=== PATIENT | male | born 1990 | race Caucasian/White ===

== ENCOUNTER 2020-03-06 20:22 | Emergency (ER) | payer SELFPAY ==
[2020-03-06] VITALS (8 sets, daily range): BP systolic 169; BP diastolic 81; PULSE 76–87; RESP 18–26; TEMP 36.6–36.7; O2SAT 98–100
--- NOTE | 2020-03-06 20:15 | DI.CT_ITS ---
EXAM: CT ABDOMEN PELVIS W CLINICAL HISTORY: RLQ pain and right flankpain, r/o appe/stone. TECHNIQUE: Imaging Protocol: Axial computed tomography images with coronal and sagittal reformatted images were created and reviewed CONTRAST MATERIAL: Intravenous: Omnipaque 350 Contrast volume:97 ml Oral: no COMPARISON: No exams were available for comparison FINDINGS: ABDOMEN: Lung Bases: Normal where visualized. Liver: Normal density. No measurable mass. Gallbladder and biliary tract: No radiodense calculus or dilation. Pancreas: Normal density, no abnormal calcifications or inflammatory process. Spleen: Normal. Kidneys: Normal size, contour and axis. Is there is mild right hydronephrosis secondary to a 3 millim eter stone at the right ureterovesical junction. No additional urinary tract calculi are seen.. No masses seen. Adrenal glands: No masses seen. Abdominal Aorta: Abdominal portion non-dilated. PELVIS: Bladder: Symmetric distention, no gross wall thickening. Bowel: No obstruction or bowel wall thickening. Peritoneal cavity: No ascites, collection or mesenteric inflammatory response. Bones: Within normal limits. Reproductive organs: Within normal limits. Lymph nodes: Unremarkable. Impression: Unremarkable CT scan of the abdomen and pelvis. DATA REPOSITORY: All CT scans at this facility are submitted to the National Radiology Data Registry (NRDR) Dose Index Registry (DIR) with the [employer] (ACR). RADIATION OPTIMIZATION: All CT scans at this facility use at least one of these dose optimization te chniques: automated exposure control; mA and/or kV adjustment per patient size (includes targeted exa ms where dose is matched to clinical indication); or iterative reconstruction.
--- NOTE | 2020-03-06 20:27 | DI.CT_ITS ---
EXAM: CT LUMBAR SPINE RECONS CLINICAL HISTORY: right flank and back pain. TECHNIQUE: Imaging Protocol: Axial computed tomography images with coronal and sagittal reformatted images were created and reviewed CONTRAST MATERIAL: Intravenous: Omnipaque 350 Contrast volume:structured data in ml Oral: yes / no COMPARISON: No exams were available for comparison FINDINGS: Bones: The last intervertebral disc space is designated the L5/S1 level for the numbering purpose of this examination. The vertebral body heights are well maintained. Alignment is satisfactory. No frac ture is seen. T12-L1: No disc herniations or bulges are present. L1-2: No disc herniations or bulges are present. L2-3: No disc herniations or bulges are present. L3-4: No disc herniations or bulges are present. L4-5: No disc herniations or bulges are present. L5-S1: No disc herniations or bulges are present. The visualized SI joints and sacrum are will maintained Soft Tissues: The paraspinal soft tissues are unremarkable. The kidneys are partially visualized. A small stone is noted in the right ureterovesical junction. Please see separate abdomen pelvic CT rep ort. IMPRESSION: Normal CT examination of the lumbar spine. RADIATION DOSE DELIVERED: DATA REPOSITORY: All CT scans at this facility are submitted to the National Radiology Data Registry (NRDR) Dose Index Registry (DIR) with the [employer] (ACR). RADIATION OPTIMIZATION: All CT scans at this facility use at least one of these dose optimization te chniques: automated exposure control; mA and/or kV adjustment per patient size (includes targeted exa ms where dose is matched to clinical indication); or iterative reconstruction.
--- NOTE | 2020-03-06 20:31 | W.ED.GENAD ---
Discharge Plan Disposition Patient Disposition: HOME Condition: Good Discharge Details Chief Complaint: [employer] Clinical Impression: Kidney stone on right side Primary Care Provider: None,None ED Provider: Otto Caicedo Home Meds and New Rx's Prescriptions: New tamsulosin [Flomax] 0.4 mg capsule 0.4 mg PO DAILY Qty: 7 RF: 0 No Action ibuprofen 800 MG tablet 800 mg PO TID PRNQty: 30 RF: 0 acetaminophen [Mapap Extra Strength] 500 MG tablet 1,000 mg PO PRN PRN (Reason: Pain) RF: 0 Discharge Instructions Instructions: Kidney Stones (ED) Additional Instructions: This time you have a kidney stone, it is right at the end of your ureter, and should pass soon. Please take the Flomax daily until your symptoms resolve. Please take 1000 mg of Tylenol and 800 mg of ibuprofen every 6 hours for pain. Please take the Pinetta's only as needed for breakthrough pain, but if you do take them only take 500 mg of the Tylenol/acetaminophen. You can still take ibuprofen with the Pinetta's. Please take the Zofran as needed for the nausea. We will put in a referral for you with a primary care provider. Please drink plenty of fluids, I would recommend drinking 10 to 12 cups of water per day to prevent kidney stones in the future. If you notice any worsening of your symptoms, or any new symptoms such as vomiting, diarrhea, fever, chills, shortness of breath, chest pain, numbness, weakness, or fainting , please return immediately to the emergency department for reevaluation. Please follow up with your primary care provider as soon as possible for reassessment and reevaluation. As always, it was a pleasure participating in your medical care today. Discharge Data Discharge Date/Time-TO BE ENTERED AT DEPARTURE: 03/06/20 23:35 Medical Decision Making 29-year-old male who presents with 1 to 2 hours of sudden onset right lower quadrant abdominal pain with some right back pain. Pain radiates to the groin as well, normal testicular exam, symptoms inconsistent with testicular torsion. No clinical evidence of cauda equina syndrome at this time. Vitals are stable. Exam demonstrates reproducible tenderness in the right lower quadrant, right CVA tenderness. Differential is highest for appendicitis, or kidney stones. We will treat the patient's pain, get a CT scan of the abdomen and L-spine. Gently rehydrate and reassess. 10:[address] scan has returned, there is a small distal right ureteral obstructing calculus, right at the UVJ, mild enteritis. No evidence of acute appendicitis. No other abnormalities. Signs and symptoms appear clinically consistent with urolithiasis. Urinalysis has returned, no evidence of infection, lactate is likely secondary to pain and mild dehydration. Repeat lactate after 1 L of normal saline rehydration has returned completely normal at 1.1. Patient feels much better after medication treatment. No evidence of other significant abnormality on CT scan. Patient's resolution of his symptoms, I do feel that he can be discharged home with close follow-up. He does not have a PCP, we will place a referral with case management for PCP. Will recommend NSAIDs at home, Flomax, and Pinetta to go only as needed. Discussed red flags for which to return. I have extensively reviewed the treatment plan and discharge instructions with the patient. I have addressed all patient concerns at this time. The patient was made aware of what symptoms to monitor for that would warrant a return to the emergency department. Discussed the plan with the patient, they demonstrate verbal understanding and agreement with our assessment and plan at this time. IMPRESSION: 1. No acute abnormality noted in the lumbar spine. 2. Distal right ureteral obstructing calculus. COMMENTS: Preliminary interpretation is based on receipt of 313 image(s). A final report will be issued subsequently. Thank you for allowing us to participate in the care of your patient. Dictated and Authenticated by: Mica Mahajan MD 03/06/2020 9:30 PM Eastern Time ([place] & [place]) FINDINGS: Liver: Normal. No mass. Gallbladder and bile ducts: Gallbladder not well distended. Pancreas: Normal. No ductal dilation. Spleen: Normal. No splenomegaly. Adrenals: Normal. No mass. Kidneys and ureters: There is decreased right renal perfusion with moderate right perinephric edema. There is moderate right hydronephrosis and hydroureter with periureteral edema. There is a right UVJ obstructing calculus best seen series 6 images 716 -719, 3 mm in diameter. Stomach and bowel: There may be some mild wall edema involving proximal small bowel loops versus artifact of incomplete distention related to peristalsis. Appendix: The appendix is not definitely identified. There are no secondary signs to suggest acute appendicitis. Intraperitoneal space: Trace free fluid noted in the deep pelvis. Vasculature: Unremarkable. No abdominal aortic aneurysm. Lymph nodes: Unremarkable. No enlarged lymph nodes. Bladder: Unremarkable as visualized. Reproductive: Unremarkable as visualized. Bones/joints: Unremarkable. No acute fracture. Soft tissues: Unremarkable. IMPRESSION: 1. Right UVJ obstructing calculus. 2. Mild enteritis not excludable but not strongly suspected. Clinical correlation requested. COMMENTS: Preliminary interpretation is based on receipt of 1182 image(s). A final report will be issued subsequently. Thank you for allowing us to participate in the care of your patient. Dictated and Authenticated by: Mica Mahajan MD 03/06/2020 9:36 PM Eastern Time ([place] & [place]) HPI General Date/Time Provider Initiated Documentation: 03/06/20 20:26. HPI Narrative: 29-year-old male with no significant past medical history who presents today for evaluation of abdominal pain and back pain. Patient states that just an hour or 2 ago he felt a pop shortly after getting out of bed to go make dinner for his son. He describes the pain in the back in the right lower abdomen. He thought he had ruptured something. Pain has continued for the last hour or so, he describes it as sharp, and severe. No significant aggravating or relieving factors except for making it worse when he lies down flat. He does admit to nausea and has had 2 episodes of vomiting. He does admit to radiation down to his groin however he denies any testicular pain or tenderness. He denies any dysuria. He denies any previous abdominal surgeries. Patient denies any numbness tingling or weakness. He denies any syncope. He denies any chest pain or shortness of breath. He does have a history of chronic back pain, but states that this feels notably different. Related Data Home Medications Medication Instructions Recorded Confirmed ibuprofen 800 mg PO TID PRN #30 tablet 07/16/14 03/06/20 acetaminophen [Tylenol Extra 1,000 mg PO PRN PRN 04/06/15 03/06/20 Strength] tamsulosin [Flomax] 0.4 mg PO DAILY #7 cap 03/06/20 Previous Rx's Medication Instructions Recorded ibuprofen 800 mg PO TID PRN #30 tablet 07/16/14 tamsulosin [Flomax] 0.4 mg PO DAILY #7 cap 03/06/20 Allergies Allergy/AdvReac Type Severity Reaction Status Date / Time No Known Allergies Allergy Unverified 03/06/20 21:03 Review of Systems All systems reviewed & are unremarkable except as noted in HPI and below PFSH Social History Smoking/Tobacco Use Status: Current every day Drug use: Occasionally Exam Narrative Exam Narrative: 1.Const: Well-nourished, Well-developed, appearing stated age 2.Eyes: PERRL, no conjunctival injection, and symmetrical lids. 3.ENT: Atraumatic external nose and ears. Moist MM. Neck: Symmetric, trachea midline, No thyromegaly. 4.CVS: +S1/S2, No murmurs or gallops. Peripheral pulses 2+ and equal in all extremities. Brisk capillary refill in all extremities. 5.RESP: Unlabored respiratory effort. Clear to auscultation bilaterally. No wheezes rales or rhonchi 6.GI: Soft, nondistended, notable tenderness in the right lower quadrant, no testicular or penile tenderness. Normal cremasteric reflex bilaterally. No hepatosplenomegaly. Mild voluntary guarding of the right lower quadrant. Positive CVA tenderness on the right. Positive heel strike test on the right, pain worsened with obturator sign. 7.MSK: Normocephalic/Atraumatic, Extremities w/o deformity or ttp No cyanosis or clubbing, Normal movement of all extremities 8.Skin: Warm, Dry. No rashes or lesions. 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 Sensation grossly intact, no focal neurologic deficits. Normal sensation in the lower extremities, normal strength in lower extremities, no saddle anesthesia over the groin. 10.Psych: (AAO) x3. Appropriate mood and affect
[2020-03-06] MEDS: Normal Saline 1,000 ML 1000 ML IV (20:52)
[2020-03-06] MEDS: Ondansetron 4 MG/2 ML VIAL IVP (20:54)
[2020-03-06] MEDS: Omnipaque 350 MG/ML 100 ML BTL IJ (20:56)
[2020-03-06] MEDS: Normal Saline - Diluent 50 ML VIAL IV (20:56)
[2020-03-06 21:06] LABS: Abs Immature Grans 0.03 k/cumm (0.0-0.09); Absolute Basophil Count 0.01 k/cumm (0.0-0.2); Absolute Eosinophil Count 0.08 k/cumm (0.0-0.7); Absolute Lymphocyte Count 3.17 k/cumm (1.2-3.4); Absolute Monocyte Count 0.95 k/cumm (0.11-0.7); Absolute Neutrophil Count 9.89 k/cumm (1.2-6.7); Basophils % 0.1; Eosinophils % 0.6; HCT 44.1 % (40.0-50.0); HGB 15.3 g/dL (13.5-17.5); Immature Grans % 0.2 %; Lymphocytes % 22.4; Mean Corp. HGB Concentration 34.7 g/dL (32.0-36.0); Mean Corpuscular Hemoglobin 32.5 pg (27.0-33.0); Mean Corpuscular Volume 93.6 fL (80-95); Mean Platelet Volume 9.3 fL (8.0-11.0); Monocytes % 6.7; Platelet Count 234 x1000/uL (130-400); RBC 4.71 m/cumm (4.50-6.00); RBC Distribution Width 11.5 % (11.8-14.1); White Blood Cell Count 14.13 k/cumm (4.4-10.8)
[2020-03-06 21:17] LABS: ALT 20 U/L (16-63); AST 13 U/L (15-37); Albumin 4.1 g/dL (3.4-5.0); Alkaline Phosphatase 70 U/L (46-116); Anion Gap 10.9 mmol/L (3-11); BUN 17 mg/dL (7-18); Bilirubin, Total 0.3 mg/dL (0.2-1.0); CO2 27.1 mmol/L (21.0-32.0); CREATININE 1.32 mg/dL (0.70-1.30); Calcium 9.1 mg/dL (8.5-10.1); Chloride 105 mmol/L (98-107); Glucose 112 mg/dL (74-106); Lipase 75 U/L (73-393); PTT Activated 22.3 sec (21.0-31.4); Prothrombin Time 10.4 sec (9.3-11.0); Sodium 143 mmol/L (136-145); Total Protein 7.5 g/dL (6.4-8.2)
--- NOTE | 2020-03-06 21:30 | DI.VRAD_ITS ---
PROCEDURE INFORMATION: Exam: CT Lumbar Spine Without Contrast Exam date and time: 03/06/2020 8:32 PM Age: 29 years old Clinical indication: Other: Right flank and back pain TECHNIQUE: Imaging protocol: Computed tomography images of the lumbar spine without contrast. COMPARISON: No relevant prior studies available. FINDINGS: Vertebrae: No acute fracture. Normal alignment. L1-L2: No disc herniation. No spinal canal stenosis. No neural foraminal narrowing. L2-L3: No disc herniation. No spinal canal stenosis. No neural foraminal narrowing. L3-L4: No disc herniation. No spinal canal stenosis. No neural foraminal narrowing. L4-L5: No disc herniation. No spinal canal stenosis. No neural foraminal narrowing. L5-S1: No disc herniation. No spinal canal stenosis. No neural foraminal narrowing. Kidneys and ureters: Decreased right renal perfusion noted. There is right perinephric edema with moderate hydronephrosis and hydroureter. See separate abdomen report. There is a distal right UVJ obstructing calculus. Soft tissues: Unremarkable. IMPRESSION: 1. No acute abnormality noted in the lumbar spine. 2. Distal right ureteral obstructing calculus. COMMENTS: Preliminary interpretation is based on receipt of 313 image(s). A final report will be issued subsequently. Dictated and Authenticated by: Mica Mahajan MD. Ordering:DARIANA Menjivar MD
--- NOTE | 2020-03-06 21:36 | DI.VRAD_ITS ---
PROCEDURE INFORMATION: Exam: CT Abdomen And Pelvis With Contrast Exam date and time: 03/06/2020 8:30 PM Age: 29 years old Clinical indication: Abdominal pain; Patient HX: Right flank and back pain TECHNIQUE: Imaging protocol: Computed tomography of the abdomen and pelvis with intravenous contrast. COMPARISON: No relevant prior studies available. FINDINGS: Liver: Normal. No mass. Gallbladder and bile ducts: Gallbladder not well distended. Pancreas: Normal. No ductal dilation. Spleen: Normal. No splenomegaly. Adrenals: Normal. No mass. Kidneys and ureters: There is decreased right renal perfusion with moderate right perinephric edema. There is moderate right hydronephrosis and hydroureter with periureteral edema. There is a right UVJ obstructing calculus best seen series 6 images 716 -719, 3 mm in diameter. Stomach and bowel: There may be some mild wall edema involving proximal small bowel loops versus artifact of incomplete distention related to peristalsis. Appendix: The appendix is not definitely identified. There are no secondary signs to suggest acute appendicitis. Intraperitoneal space: Trace free fluid noted in the deep pelvis. Vasculature: Unremarkable. No abdominal aortic aneurysm. Lymph nodes: Unremarkable. No enlarged lymph nodes. Bladder: Unremarkable as visualized. Reproductive: Unremarkable as visualized. Bones/joints: Unremarkable. No acute fracture. Soft tissues: Unremarkable. IMPRESSION: 1. Right UVJ obstructing calculus. 2. Mild enteritis not excludable but not strongly suspected. Clinical correlation requested. COMMENTS: Preliminary interpretation is based on receipt of 1182 image(s). A final report will be issued subsequently. Dictated and Authenticated by: Mica Mahajan MD. Ordering:DARIANA Menjivar MD
[2020-03-06] MEDS: HYDROmorphone 2 MG/ML VIAL 1 MG IVP ×2 (21:39→23:01)
[2020-03-06] MEDS: Ketorolac 30 MG/ML VIAL IVP (21:39)
[2020-03-06] MEDS: Tamsulosin 0.4 MG CAPCR PO (21:56)
[2020-03-06 22:22] LABS: Bilirubin Negative (Negative); Blood Large (Negative); Clarity Clear (Clear); Glucose Negative (Negative); Ketones Negative (Negative); Leukocyte Esterase Negative (Negative); Nitrite Negative (Negative); Specific Gravity 1.015 (1.005-1.025); Urobilinogen 0.2 EU/dL (Up TO 0.2); pH 7.5 (5-8)
[2020-03-06 22:31] LABS: Bacteria Rare HPF (Negative); C & S Indicated? No; Casts Negative LPF (Negative); Crystals Negative HPF (Negative); Epithelial Cells Rare HPF (Negative); Mucus Negative (Negative); RBC 20-50 HPF (0-2); WBC 0-2 HPF (0-5)
--- NOTE | 2020-03-06 22:47 | NUR.NOTE ---
Nursing Note:copied referal to caremanagement...03/06/20
[2020-03-06 23:11] LABS: Lactate 1.1 mmol/L (0.6-1.4)
[2020-03-06] MEDS: Ondansetron O.D.T. 4 MG TABEF, 3 TABS/BTL PO (23:38)
--- NOTE | 2020-03-09 09:27 | CMPROGNOTE_ITS ---
- If Service Date Differs Date of service: 03/07/20 Time of Service: 09:27 Care Management Progress Note CM coordinates a referral to [facility] for patient to establish care.
== END 2020-03-06 23:35 | disposition home or self-care (01) ==
LOC: ER 23:03
PROVIDERS: Emergency Provider Student in an Organized Health Care Education/Training Program
DX: N20.1 Calculus of ureter (principal)
CPT/HCPCS: 80053; 83690; 86850; 86900; 86901; 93005; 96361; 96374; 96375; 96376; 99285; 74177; 81003; 81015; 83605; 85025; 85610; 85730; 93010; 99284; J1885; J2405; J3490

== ENCOUNTER 2020-04-05 02:17 | Outpatient (CLI) | payer MEDICAID, SELFPAY ==
--- NOTE | 2020-04-05 10:45 | DI.US_ITS ---
EXAM: US RENAL CLINICAL HISTORY: right kidney stone per CT, cont. flank pain/fever,N20.0 TECHNIQUE: COMPARISON: No exams were available for comparison FINDINGS: Ultrasounds performed according to the usual protocol. Kidneys are normal in size and shape. There is no evidence of hydronephrosis, nephrolithiasis, or renal mass. Urinary bladder is unremarkable in appearance with pre and postvoid urinary bladder volume measurements 134 cc and 17 cc respectively. Ureteral jets are noted bilaterally. IMPRESSION: Negative renal ultrasound, no evidence of urinary tract obstruction at this time.
[2020-04-05 15:26] LABS: Abs Immature Grans 0.01 k/cumm (0.0-0.09); Absolute Basophil Count 0.01 k/cumm (0.0-0.2); Absolute Eosinophil Count 0.07 k/cumm (0.0-0.7); Absolute Lymphocyte Count 2.79 k/cumm (1.2-3.4); Absolute Monocyte Count 0.67 k/cumm (0.11-0.7); Absolute Neutrophil Count 2.94 k/cumm (1.2-6.7); Basophils % 0.2; Eosinophils % 1.1; HCT 43.2 % (40.0-50.0); HGB 15.2 g/dL (13.5-17.5); Immature Grans % 0.2 %; Mean Corp. HGB Concentration 35.2 g/dL (32.0-36.0); Mean Corpuscular Hemoglobin 33.2 pg (27.0-33.0); Mean Corpuscular Volume 94.3 fL (80-95); Mean Platelet Volume 9.1 fL (8.0-11.0); Monocytes % 10.3; Neutrophils % 45.2; Platelet Count 213 x1000/uL (130-400); RBC 4.58 m/cumm (4.50-6.00); RBC Distribution Width 11.3 % (11.8-14.1); White Blood Cell Count 6.49 k/cumm (4.4-10.8)
[2020-04-05 16:29] LABS: Bilirubin Negative (Negative); Blood Negative (Negative); Clarity Clear (Clear); Glucose Negative (Negative); Ketones Negative (Negative); Leukocyte Esterase Negative (Negative); Nitrite Negative (Negative); Urobilinogen 0.2 EU/dL (Up TO 0.2)
[2020-04-05 16:58] LABS: ALT 21 U/L (16-63); AST 14 U/L (15-37); Albumin 3.9 g/dL (3.4-5.0); Alkaline Phosphatase 74 U/L (46-116); Anion Gap 7.1 mmol/L (3-11); BUN 11 mg/dL (7-18); Bilirubin, Total 0.3 mg/dL (0.2-1.0); CO2 28.9 mmol/L (21.0-32.0); CREATININE 1.04 mg/dL (0.70-1.30); Calcium 8.7 mg/dL (8.5-10.1); Chloride 101 mmol/L (98-107); Glucose 89 mg/dL (74-106); Potassium 4.3 mmol/L (3.5-5.1); Sodium 137 mmol/L (136-145); Total Protein 6.9 g/dL (6.4-8.2)
== END 2020-04-05 02:37 ==
DX: N20.0 Calculus of kidney (principal); R50.9 Fever, unspecified
CPT/HCPCS: 36415; 76770; 80053; 81003; 85025

== ENCOUNTER 2020-06-09 00:38 | Outpatient (CLI) | payer MEDICAID, SELFPAY ==
--- NOTE | 2020-06-09 06:30 | DI.CT_ITS ---
EXAM: CT ABDOMEN PELVIS WO/W CLINICAL HISTORY: Continued flank pain,h/o kidney stones, r10.9,z87.442 TECHNIQUE: COMPARISON: CT CT ABDOMEN PELVIS W from 03/06/2020 FINDINGS: CT examination of the abdomen and pelvis was performed utilizing CT urogram protocol. Noncontrast CT shows no evidence of urinary tract calcification. Following intravenous infusion of 100 cc of Omnip aque 350 there was prompt symmetric excretion and unremarkable appearance of the renal cortex bilater ally. Collecting systems ureters and urinary bladder appear normal. No evidence of obstruction. No mass identified. Visualized lung bases are clear. Liver and spleen appear intact as visualized. Adrenals appear bila terally. Pancreas appears. Appendix appears normal, no evidence of obstruction. No pelvic. Abdominal major visceral branches appear normal. IMPRESSION: Negative CT urogram, no evidence of urinary tract calcification or obstruction.
[2020-06-09] MEDS: Omnipaque 350 MG/ML 100 ML BTL IJ (09:15)
== END 2020-06-09 00:58 ==
PROVIDERS: Visit Provider Nurse Practitioner Gerontology
DX: R10.9 Unspecified abdominal pain (principal); Z87.442 Personal history of urinary calculi
CPT/HCPCS: 74178; J3490

== ENCOUNTER 2020-07-07 01:39 | Outpatient (CLI) | payer MEDICAID, SELFPAY ==
--- NOTE | 2020-07-07 07:39 | DI.CT_ITS ---
EXAM: CT HEAD WO CLINICAL HISTORY: Acute hearing loss, right; unequal pupils (new?),EXT MUSCLE WEAKNESS,NAUSEA. TECHNIQUE: Imaging Protocol: Axial computed tomography images with coronal and sagittal reformatted images were created and reviewed COMPARISON: No exams were available for comparison FINDINGS: Ventricles and Extra axial spaces: Normal in size and morphology for the patient's age. Hemorrhage: None. Cerebral parenchyma: Normal. Midline shift: None. Brainstem/Cerebellum: Normal. Calvarium: Normal. Visualized Paranasal sinuses/Mastoids: Mucous retention cysts or polyps are seen in the left maxillar y sinus and right sphenoid sinus. The sinuses and mastoid air cells are otherwise clear. Soft Tissues: Unremarkable. IMPRESSION: Mucous retention cysts or polyps in the sinuses otherwise unremarkable CT brain. RADIATION DOSE DELIVERED: 704.6mGy.cm Total DLP DATA REPOSITORY: All CT scans at this facility are submitted to the National Radiology Data Registry (NRDR) Dose Index Registry (DIR) with the [employer] (ACR). RADIATION OPTIMIZATION: All CT scans at this facility use at least one of these dose optimization te chniques: automated exposure control; mA and/or kV adjustment per patient size (includes targeted exa ms where dose is matched to clinical indication); or iterative reconstruction.
== END 2020-07-07 01:59 ==
DX: J34.1 Cyst and mucocele of nose and nasal sinus (principal); M62.81 Muscle weakness (generalized); H91.91 Unspecified hearing loss, right ear; H57.02 Anisocoria
CPT/HCPCS: 70450

== ENCOUNTER 2020-07-19 02:26 | Outpatient (CLI) | payer MEDICAID, SELFPAY ==
[2020-07-19 09:10] LABS: Vitamin D 25 Total 21.2 ng/ml (30-100)
[2020-07-19 09:28] LABS: TSH (W/Ref FT4) 1.76 uIU/mL (0.36-3.74); Vitamin B12 569 pg/mL (193-986)
[2020-07-19 09:40] LABS: Creatine Kinase 113 U/L (39-308)
== END 2020-07-19 02:46 ==
PROVIDERS: Visit Provider Psychiatry & Neurology Neurology
DX: R53.1 Weakness (principal)
CPT/HCPCS: 36415; 82306; 82550; 82607; 84443

== ENCOUNTER 2024-04-18 14:24 | Emergency (ER) | payer MEDICAID, SELFPAY ==
[2024-04-18] VITALS (14 sets, daily range): BP systolic 113–149; BP diastolic 64–92; PULSE 58–75; RESP 15–24; TEMP 36.9; O2SAT 99
--- NOTE | 2024-04-18 14:30 | DI.RAD_ITS ---
Exam(s) XR CHEST 2V PA LATERAL EXAM: XR CHEST 2V PA LATERAL CLINICAL HISTORY: chest pain/sob TECHNIQUE: 2D digital imaging was performed. Two views. COMPARISON: No exams were available for comparison FINDINGS: HEART: Normal size. Aorta: Not dilated. PULMONARY VASCULATURE: Normal. LUNGS: Clear. PLEURAL SPACE: No pleural effusion or pneumothorax. BONE:Unremarkable for age. Soft tissues: Unremarkable. IMPRESSION: No acute abnormality. DATA REPOSITORY: RADIATION DOSE DELIVERED:
--- NOTE | 2024-04-18 14:30 | RT.EKG_ITS ---
APPROVED REPORT Exam: Resting ECG Reason for Exam: SOB Patient Location: E HR:65 bpm ECG Measurements Heart Rate 65 AXIS IA 151 P 68 QRSd 96 QRS 80 QT 405 T 48 QTc 419 Conclusion Sinus rhythm...normal P axis, V-rate 60- 99 Atrial premature complex...SV complex w/ short R-R interval ST elev, probable normal early repol pattern...ST elevation, age<55 Narrow complex normal sinus rhythm at a rate of 65. Normal axis. Intervals within normal limits. M ild anterior ST segment upsloping. No ST segment depressions. No T wave versions. No prior for [employer]. No acute injury pattern.
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
[2024-04-18 15:29] LABS: Abs Immature Grans 0.01 10^3/uL (0.0-0.06); Absolute Basophil Count 0.02 10^3/uL (0.0-0.2); Absolute Eosinophil Count 0.05 10^3/uL (0.0-0.7); Absolute Lymphocyte Count 2.04 10^3/uL (1.2-3.4); Absolute Monocyte Count 0.57 10^3/uL (0.1-0.8); Basophils % 0.3 %; Eosinophils % 0.7 %; HCT 41.5 % (40.0-50.0); Immature Grans % 0.1 %; Lymphocytes % 29.6 %; MCH 32.3 pg (27.0-33.0); MCHC 33.7 % (32.0-36.0); MCV 96 fL (80-95); MPV 8.7 fL (8.0-11.0); Monocytes % 8.3 %; Platelet Count 188 10^3/uL (130-400); RBC 4.34 10^6/uL (4.36-5.78); RDW 11.2 % (11.8-14.1); RDW-SD 39.6 fL; WBC 6.89 10^3/uL (4.4-10.8)
[2024-04-18] MEDS: Acetaminophen 500 MG TAB 1000 MG PO (15:45)
[2024-04-18 15:46] LABS: BUN 17 mg/dL (7-18); Calcium 8.9 mg/dL (8.5-10.1); Chloride 103 mmol/L (98-107); Estimated GFR 101.92 (mL/min/1.73m2); Glucose 98 mg/dL (74-106); Potassium 4.2 mmol/L (3.5-5.1); Sodium 140 mmol/L (136-145); Troponin I < 50 ng/L (< or =60)
== END 2024-04-18 16:18 | disposition home or self-care (01) ==
PROVIDERS: Emergency Provider Emergency Medicine
DX: R07.9 Chest pain, unspecified (principal); W22.8XXA Striking against or struck by other objects, initial encounter; Y93.65 Activity, lacrosse and field hockey; R06.02 Shortness of breath
CPT/HCPCS: 80048; 93005; 93308; 99284; 71046; 84484; 85025; 93010; 99283

== ENCOUNTER 2025-01-07 04:48 | Outpatient (CLI) | payer SELFPAY ==
[2025-01-26 15:49] LABS: Result Summary NEGATIVE; Specimen WB Whole Blood
== END 2025-01-07 04:49 | disposition home or self-care (01) ==
LOC: LBO 04:48
PROVIDERS: Visit Provider Advanced Practice Midwife
DX: Z14.1 Cystic fibrosis carrier (principal)
CPT/HCPCS: 36415; 81220; 81222